=== PATIENT | female | born 1965 | race Two or more races ===

== ENCOUNTER → 2016-09-02 | Day surgery (SDC) | payer OTHER ==
[~2016-09-02] MED LIST: CLARITIN10 M3 PO; IBUPROFEN
--- NOTE | ~2016-09-02 | OR ---
Unit #: [id number] #: [id number] Patient: HILLARY WEBER [id number] [address] [address] [id number] MR#: [id number] NAME: HILLARY WEBER ROOM: Date of Procedure: 09/02/2016 Admission Date: 09/02/2016 Surgeon: Jose Ramon Garcia M.D. : 1965 Attending Physician: Jose Ramon Garcia M.D. Primary Care Physician: [facility] OPERATIVE REPORT PROCEDURE PERFORMED Colonoscopy with snare polypectomy multiple. INDICATIONS FOR PROCEDURE Average risk for colorectal cancer. MEDICATIONS Monitored anesthesia. POSTOPERATIVE FINDINGS 1. Three polyps, one in transverse, one in sigmoid, one in rectum, all about 4 to 6 mm snared and sent separately for histopathology. 2. Good prep. Rest of the exam to cecum was normal. PLAN Repeat colonoscopy in 3 years. DESCRIPTION OF PROCEDURE The patient was explained of the procedure, risks, and benefits along with the risks and benefits of anesthesia. She was brought to the endoscopy room. Propofol anesthesia was given. Rectal exam was done, which was normal. Colonoscope was lubricated, passed up the rectum, advanced under direct vision all the way to the cecum. Cecum was identified by ileocecal valve and appendiceal orifice. Three polyps were seen as described. I retroflexed in the rectum, small hemorrhoids seen. Gently, the scope was pulled out. She tolerated it well. Dictated by... Puneet Araujo/lizzie TD: 09/02/2016 22:31 JOB #: [id number] Unit #: [id number] #: [id number] Patient: HILLARY WEBER OPERATIVE REPORT Page 1 of 1 X Jose Ramon Garcia MD X PROCEDURE OPERATIVE NOTE
== END | disposition home or self-care (01) ==
LOC: COPS 10:16
DX: Z12.11 Encounter for screening for malignant neoplasm of colon (principal); D12.3 Benign neoplasm of transverse colon; D12.5 Benign neoplasm of sigmoid colon; K62.1 Rectal polyp; K64.9 Unspecified hemorrhoids; Z79.899 Other long term (current) drug therapy; Z98.890 Other specified postprocedural states
CPT/HCPCS: 84703; 88305; J2250